=== PATIENT | male | born 1985 | race Caucasian/White ===

== ENCOUNTER 2018-09-09 10:30 | Outpatient (RCR) | payer MEDICAID, SELFPAY ==
--- NOTE | 2018-05-27 10:31 | HP.PTEVAL_ITS ---
Patient's Visit Information GEREMIAS SEGURA is a 32 year old M referred to Physical Therapy by Jus Chaidez with a diagnosis of R femur fracture s/p alexander early March. Date of Evaluation: 05/27/18 Physical Therapist: JUAN WilkinsT, OC - Visit Plan Frequency: 5x /Week Duration: 2 Months Plan: 3x/week for 6-8. 1. Patellar mobs and R knee ROM. 2. STM and stretching R quad and HS adn Adductors adn ITB. 3. Strength and increased WB/ function to R LE as tolerated.(WBAT). 4. ICe/MH as needed - Subjective Subjective: Building a small barn and shot self with nail gun and when climbed down the ladder and put weight through it he fractured the R femur on March 30. Pin placed the next day. In brace since which was locked straight and now had bending brace for the last 4 weeks. Using crutches for NWB then PWb now it is WBAT. Pain is not bad lately but bending it is very stiff and it hurts if he pushes it too much. Sleep is OK. 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 Dressing self and basic ADLs take a little longer but can do it. Hobbies include helping kid with soccer but not yet. Boating and tubing and camping. No exercises. Now walking without brace for the last week and no increase in pain. Uses crutches withotu brace because knee won't hold him. - Objective Right knee incisions healed well but mild scar tissue. R patella very stiff in all directions. R knee AROM -2-40 very tight and stiff. 44 passively. Ambulates with 2 crutches I PWB but stiff and very little bend in R knee. Transfers I. Steps with L leg only. Strength in hip R is 4/5, ankle 4+/5 adn knee ext 3+ adn knee flexion 4-. R knee and hip tests 5/5. Don and doffs brace I. Sensation WNL to gross light touch in B LE. Unable to SLS on R needs 50% help form UE. - Goals Goal 1:: o-110 aROM R knee to facilitate mobility Goal Time Frame: 6-8 Weeks Goal 2:: Walk without AD safe adn I in community Goal Time Frame: 6-8 Weeks Goal 3:: Steps reciprocally without rail Goal Time Frame: 6-8 Weeks Goal 4:: FGA 30/30 Goal Time Frame: 6-8 Weeks Goal 5:: Plan to return to wrok Goal Time Frame: 4-6 Weeks - Rehabilitation Potential Physical Therapy Diagnosis: R femur fracture. Rehabilitation Potential: Fair - Anticipated Interventions Patient/Client Instruction: Educate patient on: Condition, Plan of Care For the Purpose of:: To increase ROM, To improve ability of physical actions for home/community/work/leisure, To improve gait and locomotor functions Therapeutic Exercise to Include: Strength training, Flexibilty training, Gait and locomotor training, Passive ROM, Active ROM For the Purpose of:: To increase ROM, To improve nutrient delivery to tissue, To improve muscle performance and motor function, To improve ability of physical actions for home/community/work/leisure, To improve gait and locomotor functions Manual Therapy Techniques to Include: Mobilization, Passive ROM, Soft tissue mobilization Comment: patellar mobs, sTM For the Purpose of:: To improve ability of physical actions for home/community/ work/leisure, To improve gait and locomotor functions Cryotherapy (ice pack, ice massage): Yes Thermo therapy (hot pack): Yes For the Purpose of:: To decrease swelling/inflammation, To improve nutrient delivery to tissue Thank you for the opportunity to evaluate your patient. For Medicare and Medicare HMO plans, please review the plan of care and approve it. It will need to be FAXED BACK to us at [phone] for Medicare purposes. Please let me know if there are questions or concerns regarding this plan of care. Physician Signature: Date:
--- NOTE | 2018-07-15 10:43 | HP.PTREVAL_ITS ---
Jus Chaidez, It has been my pleasure to treat GEREMIAS SEGURA over the last 20 visits for R femur fracture s/p alexander early March. Please see the progress note below for an update on the physical therapy plan of care! Subjective: Doing OK. No real pain. Worked a short day yesterday due to the rain. Tolerated well but still not climbing at all, staying on the ground. Objective/Function: Walks without deficiti but a little stiff upon arising from single posiion for long period of time, tends to have wide HELENA but can correct safely with VC. ROM:0-98 degrees ROM with OP, slowly getting better. Strength : 4/5 ext adn 4+ flexion R knee. steps:reciprocal up and down without rail but motion limits descending comfortably and normally with R. OVERALL CONSIDERABLE IMPROVEMENT BUT HAS SOME IMPROVEMENT TO MAKE IN FLEXION ROM AND STRENGTH FUNCTIONALLY. Plan Plan: 2x/week for 3-4 to work on ROM and progress strength/functioning ex. Move to more functional multi joint ex in clinic and continue flexion ROM progress, don't need to repeat todays ex in clinic as patient will do them I and ask questions as needed. Goals Goal 1:: o-110 aROM R knee to facilitate mobility Goal Time Frame: 6-8 Weeks Goal Progress: progressing slowly Goal 2:: Walk without AD safe adn I in community Goal Time Frame: 6-8 Weeks Goal Progress: Goal Met Goal 3:: Steps reciprocally without rail Goal Time Frame: 6-8 Weeks Goal Progress: met, weak on R. Goal 4:: FGA 30/30 Goal Time Frame: 6-8 Weeks Goal 5:: Plan to return to wrok Goal Time Frame: 4-6 Weeks Goal Progress: started gently. 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 Goal Time Frame: 2-4 Weeks Anticipated Interventions Patient/Client Instruction: Educate patient on: Condition, Plan of Care For the Purpose of:: To increase ROM, To improve ability of physical actions for home/community/work/leisure, To improve gait and locomotor functions Therapeutic Exercise to Include: Strength training, Flexibilty training, Gait and locomotor training, Passive ROM, Active ROM For the Purpose of:: To increase ROM, To improve nutrient delivery to tissue, To improve muscle performance and motor function, To improve ability of physical actions for home/community/work/leisure, To improve gait and locomotor functions Manual Therapy Techniques to Include: Mobilization, Passive ROM, Soft tissue mobilization Comment: patellar mobs, sTM For the Purpose of:: To improve ability of physical actions for home/community/ work/leisure, To improve gait and locomotor functions Cryotherapy (ice pack, ice massage): Yes Thermo therapy (hot pack): Yes For the Purpose of:: To decrease swelling/inflammation, To improve nutrient delivery to tissue Please do not hesitate to contact me at [phone] by phone or Fax: if you have questions or concerns regarding this new plan of care! Sincerely, Sanket Terry, DPT, OC
--- NOTE | 2018-09-09 10:46 | HP.PTEVAL ---
Patient's Visit Information GEREMIAS SEGURA is a 32 year old M referred to Physical Therapy by Jus Chaidez with a diagnosis of R femur fracture s/p alexander early March. Date of Evaluation: 05/27/18 Physical Therapist: JUAN WilkinsT, OC - Visit Plan Frequency: 5x /Week Duration: 2 Months Plan: D/C - Subjective Subjective: Building a small barn and shot self with nail gun and when climbed down the ladder and put weight through it he fractured the R femur on March 30. Pin placed the next day. In brace since which was locked straight and now had bending brace for the last 4 weeks. Using crutches for NWB then PWb now it is WBAT. Pain is not bad lately but bending it is very stiff and it hurts if he pushes it too much. Sleep is OK. 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 Dressing self and basic ADLs take a little longer but can do it. Hobbies include helping kid with soccer but not yet. Boating and tubing and camping. No exercises. Now walking without brace for the last week and no increase in pain. Uses crutches withotu brace because knee won't hold him. - Pain Right Knee Pain Intensity (Out of 10): 0 - Objective Right knee incisions healed well but mild scar tissue. R patella very stiff in all directions. R knee AROM -2-40 very tight and stiff. 44 passively. Ambulates with 2 crutches I PWB but stiff and very little bend in R knee. Transfers I. Steps with L leg only. Strength in hip R is 4/5, ankle 4+/5 adn knee ext 3+ adn knee flexion 4-. R knee and hip tests 5/5. Don and doffs brace I. Sensation WNL to gross light touch in B LE. Unable to SLS on R needs 50% help form UE. 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 Goal Time Frame: 2-4 Weeks - Rehabilitation Potential Physical Therapy Diagnosis: R femur fracture. Rehabilitation Potential: Fair - Anticipated Interventions Patient/Client Instruction: Educate patient on: Condition, Plan of Care For the Purpose of:: To increase ROM, To improve ability of physical actions for home/community/work/leisure, To improve gait and locomotor functions Therapeutic Exercise to Include: Strength training, Flexibilty training, Gait and locomotor training, Passive ROM, Active ROM For the Purpose of:: To increase ROM, To improve nutrient delivery to tissue, To improve muscle performance and motor function, To improve ability of physical actions for home/community/work/leisure, To improve gait and locomotor functions Manual Therapy Techniques to Include: Mobilization, Passive ROM, Soft tissue mobilization Comment: patellar mobs, sTM For the Purpose of:: To improve ability of physical actions for home/community/work/leisure, To improve gait and locomotor functions Cryotherapy (ice pack, ice massage): Yes Thermo therapy (hot pack): Yes For the Purpose of:: To decrease swelling/inflammation, To improve nutrient delivery to tissue Thank you for the opportunity to evaluate your patient. For Medicare and Medicare HMO plans, please review the plan of care and approve it. It will need to be FAXED BACK to us at [phone] for Medicare purposes. Please let me know if there are questions or concerns regarding this plan of care. Physician Signature: Date:
--- NOTE | 2018-09-09 10:47 | HP.PTDCSUM ---
HP - PT D/C Summary It has been my pleasure to treat GEREMIAS SEGURA under orders from Jus Chaidez, for the diagnosis of R femur fracture s/p alexander early March for a total of 29 visit(s). Discharge Date: 09/09/18 Please see the following information for a summary of their discharge status. - Subjective Subjective: Going well, working hard. 5/10 if catches knee on something, otherwise feels good. Walking up ladders well. Walking on roofs OK, not dangerous. Sleep is good. 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 - Pain Right Knee Pain Intensity (Out of 10): 0 - Overall Improvement % Improvement: 90 - Objective Objective/Function: 0-113 AROM without a lot of pain but feels tight. nO WEAKNESS EVIDENT ON STEPS AND NO GAIT DEVIATIONS TODAY WITH HOPPING OR GAIT. 5/5 stregnth in R knee flexiona dn extension without pain. Limited stooping to rom but otherwise great function. DOING GREAT. WILL BE LIMITED WITH END ROM FUNCTIONS LIKE CLIMBING STEEP LADDER BUT OTHERWISE DOING GREAT. 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 Goal Progress: Goal Met - Plan Plan: D/C - D/C Information Discharge Comments: DOING EXCELLENT ADN NO F/U SCHEDULED WITH DOCTOR. RELEASED FORM PT AND WILL CONTINUE TO WORK ON STRENGTH. If there are questions or concerns regarding this patient's physical therapy, please feel free to call me at [phone]. Thank you for the referral of this patient. Sincerely, Sanket Terry, DPT, OC
== END 2018-09-09 19:00 | disposition home or self-care (01) ==
LOC: PT 10:30
PROVIDERS: Family Provider Family Medicine; PCP Family Medicine
DX: S72.309D Unspecified fracture of shaft of unspecified femur, subsequent encounter for closed fracture with routine healing (principal)
CPT/HCPCS: 97110; 97140; 97162; 97530